=== PATIENT | female | born 1985 | race Caucasian/White ===

== ENCOUNTER 2016-11-06 15:27 | Emergency (ER) | payer OTHER ==
[~2016-11-06] VITALS: Ht 152.4 cm; Wt 67.1 kg
[~2016-11-06 15:27] MED LIST: LORA0.5T96 PO; implanon
[2016-11-06 15:40] VITALS: BP 165/95
[2016-11-06] MEDS ORDERED: ORPH100T PO (16:09)
[2016-11-06] MEDS ORDERED: PRED50TA PO (16:09)
[2016-11-06] MEDS ORDERED: HYDR-971 PO (16:09)
--- NOTE | 2016-11-06 16:09 | PHYS DOC ---
Past Medical History Past Medical History: No Pertinent History Additional Past Medical Histor: chronic back pain/ hip pain Past Surgical History: Cholecystectomy Additional Past Surgical Histo: Dental surgery-wisdom teeth. Additional Information: 1 PACK/DAY Alcohol Use: None Drug Use: None Adult General Chief Complaint Chief Complaint: HIP PAIN HPI HPI Patient is a 31 year old male presents the emergency room today with complaint of left lower back and "excruciating hip pain" there is radiate down her left leg. Patient is well known to have chronic ongoing low back pain. She has been followed at [facility] in the pain management clinic. Patient did have an epidural injection performed on . She states that she began having pain any worsening manner on Monday. She states that she called [facility] pain clinic and that the doctor that primarily performs those injections is now:. Patient denies saddle anesthesia or incontinence of urine or bowel. Patient denies being seen on any other facilities this past weekend. She denies any prescriptions for controlled substances within the past 72 hours. Review of Systems Review of Systems Constitutional: Denies fever or chills [] Eyes: Denies change in visual acuity, redness, or eye pain [] HENT: Denies nasal congestion or sore throat [] Respiratory: Denies cough or shortness of breath [] Cardiovascular: No additional information not addressed in HPI [] GI: Denies abdominal pain, nausea, vomiting, bloody stools or diarrhea [] : Denies dysuria or hematuria [] Musculoskeletal: Denies back pain or joint pain [] Integument: Denies rash or skin lesions [] Neurologic: Denies headache, focal weakness or sensory changes [] Endocrine: Denies polyuria or polydipsia [] Allergies Allergies Allergies Coded Allergies Type Severity Reaction Last Updated Verified adhesive tape Allergy Intermediate Rash 11/06/16 Yes codeine Allergy Intermediate Rash 11/06/16 Yes Physical Exam Physical Exam Constitutional: Well developed, well nourished, no acute distress, non-toxic appearance. [] HENT: Normocephalic, atraumatic, bilateral external ears normal, oropharynx moist, no oral exudates, nose normal. [] Eyes: PERRLA, EOMI, conjunctiva normal, no discharge. [] Neck: Normal range of motion, no tenderness, supple, no stridor. [] Cardiovascular:Heart rate regular rhythm, no murmur [] Lungs & Thorax: Bilateral breath sounds clear to auscultation [] Abdomen: Bowel sounds normal, soft, no tenderness, no masses, no pulsatile masses. [] Skin: Warm, dry, no erythema, no rash. [] Back: Patient's back is without any evidence of deformity or discoloration to the skin. There is no erythema. There is no swelling or fluctuant pocket overlying the injection site in the lower back at the level of L1/L2 area did patient does have tenderness in this area that does appear to track down to her posterior left hip along the sciatic track. Extremities: No tenderness, no cyanosis, no clubbing, ROM intact, no edema. [] Neurologic: Lower extremities are without dystrophic changes. Strength is equal and symmetric bilaterally. Patient does perform these maneuvers with marginal effort. Negative straight leg raising cross over leg raise. Psychologic: Affect normal, judgement normal, mood normal. [] Current Patient Data Vital Signs Vital Signs Date Time Temp Pulse Resp B/P Pulse Ox O2 Delivery O2 Flow Rate FiO2 11/06/16 15:40 98.3 97 18 97 Room Air 98.3 EKG EKG [] Radiology/Procedures Radiology/Procedures [] Course & Med Decision Making Course & Med Decision Making Pertinent Labs and Imaging studies reviewed. (See chart for details) [] Dragon Disclaimer Dragon Disclaimer This electronic medical record was generated, in whole or in part, using a voice recognition dictation system. Departure Departure Impression: Primary Impression: Acute exacerbation of chronic low back pain Disposition: HOME, SELF-CARE Condition: Referrals: Iraida SAHU MD (PCP) Patient Instructions: Sciatica, [id number] Additional Instructions: 1. There is no evidence of infection at the injection site. There is no evidence of a neurologic emergency here today. 2. Take the medication as prescribed. 3. Review the discharge instructions provided for home care and reasons to return to the emergency department. 4. Call [facility] Monday as discussed. Set up a follow-up appointment with pain management clinic there. You can also call Dr. Sahu to establish a follow-up appointment with him as well. Scripts Prednisone 50 Mg [id number] Mg PO DAILY 5 Days Prov:LEXIE RASHID 11/06/16 Orphenadrine Citrate 100 Mg Tablet.er100 Mg PO every 12 hours muscle relaxer # 14 Prov:LEXIE RASHID 11/06/16 Hydrocodone/Apap 5-325 ([place] 5-325 Tablet)1 Each Tablet1 Tab PO PRN Q6HRS PRN PAIN #15 TAB Prov:LEXIE RASHID 11/06/16 LEXIE RASHID Nov 06, 2016 16:09
== END 2016-11-06 16:20 | disposition home or self-care (01) ==
LOC: ER 15:27
DX: M54.5 Low back pain (principal); M25.552 Pain in left hip; Z88.5 Allergy status to narcotic agent; Z91.048 Other nonmedicinal substance allergy status
CPT/HCPCS: 99283

== ENCOUNTER 2016-11-13 11:17 | Emergency (ER) | payer OTHER ==
[~2016-11-13] VITALS: Ht 152.4 cm; Wt 68.0 kg
[~2016-11-13 11:17] MED LIST changes: +HYDR-971 PO; +ORPH100T PO; +PRED50TA PO
[2016-11-13] MEDS ORDERED: ORPH100T PO (12:19)
[2016-11-13] MEDS ORDERED: HYDR-971 PO (12:19)
--- NOTE | 2016-11-13 12:19 | PHYS DOC ---
Past Medical History Past Medical History: Other Additional Past Medical Histor: chronic back pain/ hip pain, NARCOTIC SEEKING BEHAVIOR Past Surgical History: Cholecystectomy, Other Additional Past Surgical Histo: Dental surgery-wisdom teeth. Alcohol Use: None Drug Use: None Adult General Chief Complaint Chief Complaint: MEDICATION REFILL HPI HPI Patient is a 31 year old female with history of chronic back pain and left lower extremity sciatica presents today with moderate chronic left low back pain radiating into the left lower extremity. Patient denies any new injuries. She states she was seen at approximately 2 weeks ago and had an epidural, she states after the epidural the pain worsened. She states she came to the ED on 06 November 2016 and was given a prescription for Norflex and hydrocodone 15 tablets. She states she has an appointment with Dr. Vega her PCP in 3 weeks. She states she cannot wait until then, she is requesting some pain relief. Patient denies any known injuries. Denies any numbness or tingling to bilateral lower extremities. Denies any loss of bowel bladder function. Review of Systems Review of Systems Constitutional: Denies fever or chills [] GI: Denies abdominal pain, nausea, vomiting, bloody stools or diarrhea [] : Denies dysuria or hematuria [] Musculoskeletal: Chronic back pain with sciatica Integument: Denies rash or skin lesions [] Neurologic: Denies headache, focal weakness or sensory changes [] Endocrine: Denies polyuria or polydipsia [] Allergies Allergies Allergies Coded Allergies Type Severity Reaction Last Updated Verified adhesive tape Allergy Intermediate Rash 11/06/16 Yes codeine Allergy Intermediate Rash 11/06/16 Yes Physical Exam Physical Exam Constitutional: Well developed, well nourished, no acute distress, non-toxic appearance. [] Skin: Warm, dry, no erythema, no rash. [] Back: No tenderness, no CVA tenderness. [] Extremities: Diffuse tenderness to paraspinal muscles of the left lower lumbar region worse on the left SI joint, no midline tenderness to the lumbar spine, no cyanosis, no clubbing, ROM intact, no edema. [] Neurologic: Alert and oriented X 3, normal motor function, normal sensory function, no focal deficits noted. [] Psychologic: Affect normal, judgement normal, mood normal. [] Current Patient Data Vital Signs Vital Signs Date Time Temp Pulse Resp B/P Pulse Ox O2 Delivery O2 Flow Rate FiO2 11/13/16 11:28 98.5 95 16 99 Room Air 98.5 EKG EKG [] Radiology/Procedures Radiology/Procedures [] Course & Med Decision Making Course & Med Decision Making Pertinent Labs and Imaging studies reviewed. (See chart for details) Patient with history of chronic back pain and left lower leg sciatica presents today with chronic back pain radiating to the left lower extremity. She has an appointment with Dr. Vega her PCP in 3 weeks. She states she used to follow-up with the pain clinic but the doctor who was performing her steroid injections quit the practice and patient was transferred to another doctor. I provided her Dr. Nieves pain clinic doctor contact number and requested her to follow-up as soon as possible. We talked about ways of managing her pain considering this is her second visit in the ED in the last 2 weeks. Patient states she will follow up with her own PCP, she states she may even go to the PCPs office tomorrow and sit in the office until she is seen. Informed her it will be aragon to call the PCP first before going to sit in the office waiting to be seen with no appointment. Gave her prescription of 10 tablets of [place] and 12 tablets of Norflex. Recommended naproxen as well. She already finished a course of steroid recently. Provided return precautions. Discharged in stable condition. Reminded her she cannot to use the ED for chronic pain management. Dragon Disclaimer Dragon Disclaimer This electronic medical record was generated, in whole or in part, using a voice recognition dictation system. Departure Departure Impression: Primary Impression: Acute exacerbation of chronic low back pain Additional Impression: Left sciatic nerve pain Disposition: 01 HOME, SELF-CARE Condition: STABLE Referrals: Iraida VEGA MD (PCP) MARK NIEVES MD Follow-up with your own doctor or the provided pain clinic doctor as soon as possible Patient Instructions: Back Pain, Adult Additional Instructions: He was seen for chronic back pain. Please remember you cannot use the emergency room for management of chronic back pain. At some point we will stop giving you any prescription pain medicines. I provided your pain clinic doctor, contact his office on Monday and try and get a follow-up appointment. I also recommended you call Dr. Vega on Monday this week and try and get an earlier appointment Scripts Hydrocodone/Apap 5-325 ([place] 5-325 Tablet)1 Each Tablet1-2 Tab PO Q4-6HRS #10 TAB Prov:TILA RICE APRN 11/13/16 Orphenadrine Citrate 100 Mg Tablet.er1 Tab PO BID #12 TAB Ref 1 Prov:TILA RICE APRN 11/13/16 Problem Qualifiers TILA RICE APRN Nov 13, 2016 12:19
[2016-11-13 12:35] VITALS: BP 115/56
== END 2016-11-13 12:35 | disposition home or self-care (01) ==
LOC: ER 11:17
DX: M54.42 Lumbago with sciatica, left side (principal); G89.29 Other chronic pain; Z88.5 Allergy status to narcotic agent; Z91.048 Other nonmedicinal substance allergy status
CPT/HCPCS: 99283